=== PATIENT | male | born 1945 | race Caucasian/White ===

== ENCOUNTER 2020-03-01 11:15 | Emergency (ER) | payer MEDICARE ==
[~2020-03-01] VITALS: Ht 180.3 cm; Wt 108.9 kg
[2020-03-01 12:54] VITALS: BP 158/79
== END 2020-03-01 12:55 | disposition home or self-care (01) ==
LOC: ER 11:15
DX: S61.210A Laceration without foreign body of right index finger without damage to nail, initial encounter (principal); Z23 Encounter for immunization; W31.89XA Contact with other specified machinery, initial encounter; Y93.89 Activity, other specified; Y92.89 Other specified places as the place of occurrence of the external cause; Y99.8 Other external cause status